=== PATIENT | female | born 1975 ===

== ENCOUNTER 2017-12-18 10:01 | Inpatient (IN) | payer SELFPAY ==
[2017-12-18] MEDS ORDERED: Oxytocin in LR* 20 UNITS/1,000 ML BAG IVPB ONE (13:33)
[2017-12-18 16:37] VITALS: BP 113/70
--- NOTE | 2017-12-18 19:09 | HP ---
General Information - Reason for Visit Induction for baby with anencephaly. 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 - General Information Maternal Age: 42 Grav: 14 Para: 14 SAB: 0 IEA: 0 Estimated Due Date: 12/21/17 Determined By: LMP Maternal Blood Type and Rh: O Positive - Results this Serology/RPR Result: Non-Reactive HBsAg Result: Negative Past Medical History Delivery History: Hx Complicated Vaginal Delivery - twins with breech extraction and post- hemorrhage(12th), pph with 13th delivery Pertinent Past Medical History: Non-Contributory Pertinent Past Surgical History: None Pertinent Family History: Non-Contributory - Antepartal Records Antepartal Records: Reviewed, Complicated by: - anencephaly Review of Systems Constitutional: Comfortable CV Complaint: No Respiratory: Shortness of Breath: No Gastrointestinal: No Nausea/Vomiting, Normal Bowel Movement Genitourinary: No Dysuria, No Bleeding, No Leaking Fluid Musculoskeletal: No Complaint Neurological: No Headache Movement: Normal Exam Allergies/Adverse Reactions: Allergies No Known Allergies Allergy (Verified 12/18/17 16:36) Vital Signs 12/18/17 16:36 Temperature 97.7 F Pulse Rate 79 Blood Pressure 113/70 (mmHg) - Measurements Height: 5 ft 4 in Weight: 186 lb Weight in lbs: [id number] Body Mass Index (BMI): 31.9 Pre- Weight: 167 lb Weight Gained This : 19 lbs and 0 ozs - Exam Breast: Breast Exam Deferred Extremities: No Edema Heart: Normal Rhythm/Heart Sounds HEENT: No Significant Findings - Abdominal Exam Abdomen Exam: Non-Tender - Ultrasound/Biophysical Profile Ultrasound Status: Not Done Targeted Exam Findings Cervical Exam: 2cm Effacement: 50% Station: -2 Presenting Part: Face Membrane Status: AROM Amniotic Fluid Evaluation: Clear Bleeding/Discharge: None EFM Findings - External Monitor Findings Baseline Heart Rate: 140 External Monitor Findings: No Pattern of Variable or Late Decelerations Contractions: None Assessment/Plan - Assessment G14P(13)(0)(0)(14) @39.4wks GA with baby with anencephaly. Ambiguous genitalia but no other abnormalities. Plan for comfort care after delivery. - Plan Plan: Induction - Date/Time of Admission Date of Admission: 12/18/17 Time of Admission: 10:30
--- NOTE | 2017-12-18 19:45 | PROCNOTE ---
[facility] OB: Delivery Note - Delivery A Date of : 12/18/17 Time of : 18:41 Sex: Male Gestational Age in Weeks and Days at Delivery: 39 Weeks and 4 Days Delivery Method: Spontaneous Vaginal Labor: Induced Amniotic Fluid: Clear Estimated Blood Loss: 100 Anesthesia/Analgesia: None Delivered By: Negra Hutson - Nursery Level of Nursery: Regular/Bedside - Perineum Perineal Injury: None/Intact - Events Delivery Events of Note: Pitocin During Labor Delivery Events of Note Comment: infant with anencephaly. born with respiratory effort and spontaneous movement. - Additional Delivery Notes Additional Delivery Notes: Pt presented for induction of labor due to baby with anencephaly and history of post- hemorrhage. She underwent AROM but when no regular contractions started after about 3hrs the decision was made to start pitocin. After about 4hrs she had progressed to fully dilated. She pushed less than 10 min to deliver the infant's head in face presentation. Further pushing resulted in delivery of the shoulders followed by the rest of the body. The baby was placed on the mom's abdomen. The cord was milked towards the baby, then clamped x2 and cut. Placenta delivered with fundal massage and gentle cord traction. Good hemostasis and fundus firm. The baby had spontaneous cry and movement after delivery.
== END 2017-12-18 22:50 | disposition home or self-care (01) | DRG 775 ==
LOC: MCHOBOUT 10:01 → MCHOB 10:42
PROVIDERS: ADMIT Obstetrics & Gynecology; ATTEND Obstetrics & Gynecology
PROC: 10907ZC Drainage of Amniotic Fluid, Therapeutic from Products of Conception, Via Natural or Artificial Opening (ICD-10-PCS; principal; 2017-12-16)
PROC: 10E0XZZ Delivery of Products of Conception, External Approach (ICD-10-PCS; 2017-12-16)
PROC: 4A1HX4Z Monitoring of Products of Conception, Cardiac Electrical Activity, External Approach (ICD-10-PCS; 2017-12-16)
PROC: 3E033VJ Introduction of Other Hormone into Peripheral Vein, Percutaneous Approach (ICD-10-PCS; 2017-12-16)
DX: O35.0XX0 Maternal care for (suspected) central nervous system malformation in fetus, not applicable or unspecified (principal); Z37.0 Single live birth; Z3A.39 39 weeks gestation of pregnancy